=== PATIENT | male | born 1950 | race Caucasian/White ===

== ENCOUNTER 2018-10-23 08:09 | Inpatient (IN) | payer MEDICARE, OTHER ==
[~2018-10-23] VITALS: Ht 185.4 cm; Wt 131.5 kg
[2018-10-23 08:14] VITALS: BP 132/76
[2018-10-23] MEDS ORDERED: ALLOPURINOL 10100 M2 PO (08:17)
[2018-10-23] MEDS ORDERED: FLOMAX0.4 MG PO (08:17)
[2018-10-23] MEDS ORDERED: ATORVASTATIN CA40 MG PO (08:18)
[2018-10-23] MEDS ORDERED: PROTONIX40 M1 PO (08:18)
[2018-10-23] MEDS ORDERED: AMILORIDE HCL-1 EACH PO (08:18)
[2018-10-23] MEDS ORDERED: BAYER CHEWABLE81 MG PO (08:19)
[2018-10-23] MEDS ORDERED: FISH OIL 1,001000 M2 PO (08:19)
[2018-10-23] MEDS ORDERED: VITAMIN E400 UNIT PO (08:19)
[2018-10-23] MEDS ORDERED: ZANAFLEX4 MG PO (08:19)
[2018-10-23 09:05] LABS: HEMATOCRIT 43.7 % (42.0-52.0); HEMOGLOBIN 14.9 gm/dL (14.0-18.0); MCH 30.2 pg (26.0-34.0); MPV 7.5 fl. (7.2-11.1); NUCLEATED RBCS 0 /100WBC; PLATELET COUNT* 214 thou/uL (150-400); RBC 4.91 mil/uL (4.50-6.00); RDW-CV 14.4 % (10.5-14.5); WBC 12.2 thou/uL (4.0-11.0)
[2018-10-23 09:14] LABS: CALCIUM 9.1 mg/dL (8.5-10.1); CREATININE 0.9 mg/dL (0.6-1.3)
[2018-10-23 09:18] LABS: ALBUMIN 3.5 g/dL (3.4-5.0); TOTAL BILIRUBIN 2.8 mg/dL (<0.1-1.0); TOTAL PROTEIN 7.5 g/dL (6.4-8.2)
[2018-10-23 09:35] LABS: ABSOLUTE LYMPHOCYTES 0.6 thou/uL (0.8-5.3); ABSOLUTE MONOCYTES 1.2 thou/uL (0.0-1.2); ABSOLUTE NEUTROPHILS 10.4 thou/uL (1.6-8.1); ANISOCYTOSIS 1+; PLATELET ESTIMATE ADEQUATE; POIKILOCYTOSIS 1+
[2018-10-23 11:16] LABS: URINE BILIRUBIN NEGATIVE (Negative); URINE BLOOD TRACE (Negative); URINE CLARITY CLEAR; URINE COLOR YELLOW; URINE GLUCOSE-RANDOM NEGATIVE (Negative); URINE KETONES NEGATIVE (Negative); URINE LEUKOCYTES-REFLEX NEGATIVE (Negative); URINE NITRITE-REFLEX NEGATIVE (Negative); URINE PROTEIN NEGATIVE (Negative); URINE SPECIFIC GRAVITY <= 1.005 (1.005-1.030); URINE UROBILINOGEN 0.2 E.U./dl (0.2-1.0)
[2018-10-23 11:47] VITALS: BP 124/61
[2018-10-23 12:07] VITALS: BP 144/87
[2018-10-23 15:46] VITALS: BP 137/77
--- NOTE | 2018-10-23 17:48 | EKG ---
[place] [address] ELECTROCARDIOGRAM REPORT Name: JENNIFER ARORA Room: [address] ADM IN M.R.#: [id number] Admission: 10/23/18 Attend Phys: Fariba Suarez DO Discharge: Date of : 50 Report #: [id number] THIS REPORT FOR: //name// [facility] ED Test Date: 2018-10-23 Test Time: 09:32:28 Pat Name: JENNIFER ARORA Department: Room: [facility] Gender: M Ore Miner: KARLOS : 1950 Requested By: Irasema Deluca Order Number: [id number] MD: John Avitia Measurements Intervals [place] Rate: 111 P: 68 MO: 185 QRS: 69 QRSD: 104 T: 12 QT: 320 QTc: 435 Interpretive Statements Sinus tachycardia No previous ECG available for comparison Electronically Signed On 10-23-2018 17:48:12 CW OPERATOR by John Avitia [email or web address] <ELECTRONICALLY SIGNED> By: John Avitia MD, [facility] 10/23/18 1748 0932 09 John Avitia MD, FACC /EPI
[2018-10-23 19:40] VITALS: BP 134/76
[2018-10-24 03:59] LABS: ABSOLUTE EOSINOPHILS 0.1 thou/uL (0.0-0.7); ABSOLUTE LYMPHOCYTES 0.8 thou/uL (0.8-5.3); ABSOLUTE MONOCYTES 0.9 thou/uL (0.0-1.2); ABSOLUTE NEUTROPHILS 9.9 thou/uL (1.6-8.1); BASOPHILS 0.2 %; EOSINOPHILS 0.5 %; HEMATOCRIT 39.4 % (42.0-52.0); HEMOGLOBIN 13.1 gm/dL (14.0-18.0); LYMPHOCYTES 6.6 %; MCH 29.6 pg (26.0-34.0); MCHC 33.2 g/dL (28.0-37.0); MCV 89.1 fL (80.0-100.0); MONOCYTES 8.1 %; MPV 7.7 fl. (7.2-11.1); NUCLEATED RBCS 0 /100WBC; PLATELET COUNT* 191 thou/uL (150-400); POLYS 84.6 %; RBC 4.42 mil/uL (4.50-6.00); RDW-CV 14.5 % (10.5-14.5); WBC 11.7 thou/uL (4.0-11.0)
[2018-10-24 04:21] LABS: CALCIUM 8.5 mg/dL (8.5-10.1)
[2018-10-24 04:22] LABS: POTASSIUM 4.2 mmol/L (3.5-5.1)
[2018-10-24 08:11] VITALS: BP 149/76
[2018-10-24 16:30] VITALS: BP 122/61
[2018-10-24 20:20] VITALS: BP 142/72
[2018-10-25 04:22] LABS: ABSOLUTE EOSINOPHILS 0.2 thou/uL (0.0-0.7); ABSOLUTE LYMPHOCYTES 0.9 thou/uL (0.8-5.3); ABSOLUTE MONOCYTES 0.7 thou/uL (0.0-1.2); ABSOLUTE NEUTROPHILS 9.1 thou/uL (1.6-8.1); BASOPHILS 0.2 %; EOSINOPHILS 1.8 %; HEMATOCRIT 38.8 % (42.0-52.0); HEMOGLOBIN 13.1 gm/dL (14.0-18.0); LYMPHOCYTES 7.8 %; MCH 30.1 pg (26.0-34.0); MCHC 33.8 g/dL (28.0-37.0); MCV 89.1 fL (80.0-100.0); MONOCYTES 6.7 %; MPV 7.8 fl. (7.2-11.1); NUCLEATED RBCS 0 /100WBC; PLATELET COUNT* 217 thou/uL (150-400); POLYS 83.5 %; RBC 4.36 mil/uL (4.50-6.00); RDW-CV 14.2 % (10.5-14.5)
[2018-10-25 04:33] LABS: CALCIUM 8.5 mg/dL (8.5-10.1); CREATININE 0.8 mg/dL (0.6-1.3); POTASSIUM 3.7 mmol/L (3.5-5.1)
[2018-10-25 07:50] VITALS: BP 135/57
[2018-10-25 16:00] VITALS: BP 113/67
[2018-10-25 20:35] VITALS: BP 113/65
[2018-10-26 01:16] VITALS: BP 115/52
[2018-10-26 07:50] VITALS: BP 124/62
[2018-10-26 16:47] VITALS: BP 113/44
[2018-10-26 21:22] VITALS: BP 136/61
[2018-10-27 10:07] VITALS: BP 113/59
[2018-10-27 16:00] VITALS: BP 134/66
[2018-10-28 03:44] LABS: HEMATOCRIT 33.4 % (42.0-52.0); HEMOGLOBIN 11.3 gm/dL (14.0-18.0); MCH 30.1 pg (26.0-34.0); MCHC 33.7 g/dL (28.0-37.0); MCV 89.3 fL (80.0-100.0); MPV 7.5 fl. (7.2-11.1); RBC 3.74 mil/uL (4.50-6.00); RDW-CV 14.1 % (10.5-14.5); WBC 9.5 thou/uL (4.0-11.0)
[2018-10-28 04:00] VITALS: BP 100/51
[2018-10-28 04:16] LABS: CALCIUM 8.2 mg/dL (8.5-10.1); CREATININE 0.7 mg/dL (0.6-1.3); POTASSIUM 3.3 mmol/L (3.5-5.1)
[2018-10-28 07:55] VITALS: BP 112/51
[2018-10-28 16:00] VITALS: BP 132/54
[2018-10-29] VITALS (13 sets, daily range): BP systolic 102–11117; BP diastolic 4–67
[2018-10-30 00:35] VITALS: BP 120/54
[2018-10-30 03:56] VITALS: BP 130/55
[2018-10-30 07:45] VITALS: BP 120/50
[2018-10-30] MEDS ORDERED: AUGMENTIN 875-1 EACH PO (13:36)
[2018-10-30] MEDS ORDERED: NORCO 5-325 TA1 EACH PO (13:37)
[2018-10-30] MEDS ORDERED: CYCLOBENZAPRINE5 MG PO (13:39)
[2018-10-30 13:42] VITALS: BP 120/50
[2018-10-30 14:13] VITALS: BP 120/50
== END 2018-10-30 15:35 | disposition home health service (06) | DRG 871 ==
LOC: M.ERS 08:09 → M.TBA-ER 11:26 → M.ORTHSURG 11:26 → M.3W 10-25 16:41
PROVIDERS: Personal Emergency Response Attendant; Surgery; ADMIT Surgery
PROC: 0W9J3ZZ Drainage of Pelvic Cavity, Percutaneous Approach (ICD-10-PCS; principal; 2018-10-29)
DX: A41.9 Sepsis, unspecified organism (principal); K35.33 Acute appendicitis with perforation, localized peritonitis, and gangrene, with abscess; A04.9 Bacterial intestinal infection, unspecified; K21.9 Gastro-esophageal reflux disease without esophagitis; E78.5 Hyperlipidemia, unspecified; Z96.653 Presence of artificial knee joint, bilateral; Z96.612 Presence of left artificial shoulder joint; Z96.611 Presence of right artificial shoulder joint; Z28.21 Immunization not carried out because of patient refusal; Z87.442 Personal history of urinary calculi; Z88.6 Allergy status to analgesic agent; Z79.899 Other long term (current) drug therapy

== ENCOUNTER 2018-11-12 15:43 | Inpatient (IN) | payer MEDICARE, OTHER ==
[~2018-11-12] VITALS: Ht 185.4 cm; Wt 127.0 kg
[~2018-11-12 15:43] MED LIST: ALLOPURINOL 10100 M2 PO; AMILORIDE HCL-1 EACH PO; ATORVASTATIN CA40 MG PO; AUGMENTIN 875-1 EACH PO; BAYER CHEWABLE81 MG PO; CYCLOBENZAPRINE5 MG PO; FISH OIL 1,001000 M2 PO; FLOMAX0.4 MG PO; NORCO 5-325 TA1 EACH PO; PROTONIX40 M1 PO; VITAMIN E400 UNIT PO; ZANAFLEX4 MG PO
[2018-11-12 15:48] VITALS: BP 156/86
[2018-11-12 16:16] LABS: ABSOLUTE EOSINOPHILS 0.3 thou/uL (0.0-0.7); ABSOLUTE MONOCYTES 0.5 thou/uL (0.0-1.2); ABSOLUTE NEUTROPHILS 4.1 thou/uL (1.6-8.1); BASOPHILS 0.8 %; EOSINOPHILS 4.6 %; HEMATOCRIT 40.3 % (42.0-52.0); HEMOGLOBIN 13.7 gm/dL (14.0-18.0); LYMPHOCYTES 17.3 %; MCH 29.5 pg (26.0-34.0); MCHC 33.9 g/dL (28.0-37.0); MCV 87.2 fL (80.0-100.0); MONOCYTES 8.8 %; MPV 7.1 fl. (7.2-11.1); NUCLEATED RBCS 0 /100WBC; PLATELET COUNT* 454 thou/uL (150-400); POLYS 68.5 %; RBC 4.62 mil/uL (4.50-6.00); RDW-CV 14.8 % (10.5-14.5)
[2018-11-12 16:24] LABS: ANION GAP 10 mmol/L (7-16); BUN 18 mg/dL (7-18); CALCIUM 9.2 mg/dL (8.5-10.1); CHLORIDE 101 mmol/L (98-107); CO2 28 mmol/L (21-32); CREATININE 0.8 mg/dL (0.6-1.3); GLUCOSE 135 mg/dL (70-99); POTASSIUM 3.3 mmol/L (3.5-5.1); SODIUM 139 mmol/L (136-145)
[2018-11-12 16:31] LABS: ALBUMIN 3.2 g/dL (3.4-5.0); ALKALINE PHOSPHATASE 131 U/L (46-116); LIPASE 80 U/L (73-393); SGOT 15 U/L (15-37); SGPT 22 U/L (30-65); TOTAL BILIRUBIN 0.6 mg/dL (<0.1-1.0); TROPONIN-I LEVEL <0.06 ng/mL (<0.06)
[2018-11-12 20:55] VITALS: BP 132/80
[2018-11-12 21:00] VITALS: BP 153/83
[2018-11-13] MEDS ORDERED: CENTRUM SILVER1 EAC2 PO (01:36)
[2018-11-13 04:00] VITALS: BP 117/50
[2018-11-13 08:30] VITALS: BP 98/33
[2018-11-13 14:05] VITALS: BP 119/66
[2018-11-13 20:00] VITALS: BP 109/56
[2018-11-14 04:08] LABS: HEMATOCRIT 37.6 % (42.0-52.0); HEMOGLOBIN 12.6 gm/dL (14.0-18.0); MCH 29.7 pg (26.0-34.0); MCHC 33.5 g/dL (28.0-37.0); MCV 88.8 fL (80.0-100.0); MPV 7.4 fl. (7.2-11.1); RBC 4.23 mil/uL (4.50-6.00); RDW-CV 14.5 % (10.5-14.5); WBC 5.2 thou/uL (4.0-11.0)
[2018-11-14 04:39] LABS: ALBUMIN 2.8 g/dL (3.4-5.0); CALCIUM 8.7 mg/dL (8.5-10.1); CREATININE 0.8 mg/dL (0.6-1.3); POTASSIUM 4.5 mmol/L (3.5-5.1); TOTAL PROTEIN 6.3 g/dL (6.4-8.2)
[2018-11-14 08:30] VITALS: BP 131/63
--- NOTE | 2018-11-14 14:42 | EKG ---
[place] [address] ELECTROCARDIOGRAM REPORT Name: JENNIFER ARORA Room: [address] ADM IN M.R.#: [id number] Admission: 11/12/18 Attend Phys: Lisa Rivas Discharge: Date of : 50 Report #: [id number] THIS REPORT FOR: //name// [facility] ED Test Date: 2018-11-12 Test Time: 16:16:19 Pat Name: JENNIFER ARORA Department: Room: [facility] Gender: M Assistant Winemaker: MARBIN : 1950 Requested By: Owen Siegel Order Number: [id number] MD: Zachary Valiente Measurements Intervals [place] Rate: 102 P: 36 ID: [id number] QRS: 31 QRSD: 100 T: 11 QT: 349 QTc: 455 Interpretive Statements Sinus tachycardia Compared to ECG 10/23/2018 09:32:28 No significant changes Electronically Signed On 11-14-2018 14:42:12 MUTUEL DEPARTMENT MANAGER by Zachary Valiente [email or web address] <ELECTRONICALLY SIGNED> By: Zachary Valiente MD, [facility] 11/14/18 1442 1616 15 Zachary Valiente MD, FACC /EPI
[2018-11-14 16:25] VITALS: BP 131/63
[2018-11-14 16:44] VITALS: BP 112/62
[2018-11-14 20:18] VITALS: BP 103/54
[2018-11-15 05:17] LABS: HEMATOCRIT 38.3 % (42.0-52.0); HEMOGLOBIN 12.7 gm/dL (14.0-18.0); MCH 29.7 pg (26.0-34.0); MCHC 33.2 g/dL (28.0-37.0); MCV 89.3 fL (80.0-100.0); MPV 7.5 fl. (7.2-11.1); RBC 4.29 mil/uL (4.50-6.00); RDW-CV 14.7 % (10.5-14.5)
[2018-11-15 05:54] LABS: ALBUMIN 2.7 g/dL (3.4-5.0); CALCIUM 8.8 mg/dL (8.5-10.1); CREATININE 0.8 mg/dL (0.6-1.3); MAGNESIUM 2.1 mg/dL (1.8-2.4); POTASSIUM 4.3 mmol/L (3.5-5.1); TOTAL BILIRUBIN 0.7 mg/dL (<0.1-1.0); TOTAL PROTEIN 6.7 g/dL (6.4-8.2)
[2018-11-15 08:26] VITALS: BP 133/94
[2018-11-15] MEDS ORDERED: FIRVANQ50 MG/1 ML PO (09:38)
[2018-11-15] MEDS ORDERED: NORCO 5-325 TA1 EACH PO (09:55)
[2018-11-16 00:05] VITALS: BP 128/88
[2018-11-16 08:10] VITALS: BP 135/67
== END 2018-11-16 13:45 | disposition home or self-care (01) | DRG 372 ==
LOC: M.ERS 15:43 → M.TBA-ER 19:41 → M.ORTHSURG 19:41 → M.3W 11-13 16:03
PROVIDERS: Emergency Medicine Emergency Medical Services; Internal Medicine; ADMIT Internal Medicine
DX: K35.33 Acute appendicitis with perforation, localized peritonitis, and gangrene, with abscess (principal); E44.1 Mild protein-calorie malnutrition; K21.9 Gastro-esophageal reflux disease without esophagitis; E78.5 Hyperlipidemia, unspecified; Z96.653 Presence of artificial knee joint, bilateral; Z88.6 Allergy status to analgesic agent; Z98.52 Vasectomy status; Z87.891 Personal history of nicotine dependence; Z87.442 Personal history of urinary calculi; Z79.82 Long term (current) use of aspirin; Z79.899 Other long term (current) drug therapy; Z23 Encounter for immunization; Z68.36 Body mass index [BMI] 36.0-36.9, adult

== ENCOUNTER 2018-12-12 22:24 | Inpatient (IN) | payer OTHER ==
[~2018-12-12] VITALS: Ht 185.4 cm; Wt 133.8 kg
[~2018-12-12 22:24] MED LIST changes: +CENTRUM SILVER1 EAC2 PO; +FIRVANQ50 MG/1 ML PO
[2018-12-12 22:44] VITALS: BP 162/76
[2018-12-12] MEDS ORDERED: FISH OIL 1,001000 M2 PO (22:49)
[2018-12-12 23:10] LABS: ABSOLUTE EOSINOPHILS 0.3 thou/uL (0.0-0.7); ABSOLUTE LYMPHOCYTES 1.1 thou/uL (0.8-5.3); ABSOLUTE MONOCYTES 0.9 thou/uL (0.0-1.2); ABSOLUTE NEUTROPHILS 6.3 thou/uL (1.6-8.1); BASOPHILS 0.6 %; HEMATOCRIT 38.7 % (42.0-52.0); HEMOGLOBIN 12.9 gm/dL (14.0-18.0); LYMPHOCYTES 12.9 %; MCH 29.7 pg (26.0-34.0); MCHC 33.4 g/dL (28.0-37.0); MCV 88.8 fL (80.0-100.0); MONOCYTES 10.2 %; MPV 7.1 fl. (7.2-11.1); NUCLEATED RBCS 0 /100WBC; PLATELET COUNT* 241 thou/uL (150-400); POLYS 73.3 %; RBC 4.36 mil/uL (4.50-6.00); WBC 8.6 thou/uL (4.0-11.0)
[2018-12-12 23:15] LABS: URINE BILIRUBIN NEGATIVE (Negative); URINE BLOOD TRACE (Negative); URINE CLARITY CLEAR; URINE COLOR YELLOW; URINE GLUCOSE-RANDOM NEGATIVE (Negative); URINE KETONES NEGATIVE (Negative); URINE LEUKOCYTES-REFLEX NEGATIVE (Negative); URINE NITRITE-REFLEX NEGATIVE (Negative); URINE PROTEIN NEGATIVE (Negative); URINE SPECIFIC GRAVITY 1.025 (1.005-1.030); URINE UROBILINOGEN 0.2 E.U./dl (0.2-1.0)
[2018-12-12 23:23] LABS: CALCIUM 8.7 mg/dL (8.5-10.1); CREATININE 1.2 mg/dL (0.6-1.3); POTASSIUM 3.3 mmol/L (3.5-5.1)
[2018-12-12 23:27] LABS: ALBUMIN 3.2 g/dL (3.4-5.0); TOTAL BILIRUBIN 1.2 mg/dL (<0.1-1.0); TOTAL PROTEIN 7.5 g/dL (6.4-8.2)
[2018-12-13 00:42] VITALS: BP 136/70
[2018-12-13 01:00] VITALS: BP 167/85
--- NOTE | 2018-12-13 03:29 | NUR ---
PT ADMITTED TO ROOM 304 AT 0045 FOR ABDOMINAL PAIN. REPORTS FEELING ABDOMINAL PAIN AND LOWER BACK PAIN AT THE START OF SEPTEMBER 2018. PT STATES HE HAS A LONG HISTORY OF KIDNEY STONES DATING BACK TO 1966. HE STATES THE PAIN WAS RELATIVELY THE SAME INCLUDING PAIN WITH URINTION. PT DID NOT SEEK TREATMENT UNTIL September THINKING IT WAS A LARGE STONE THAT WOULD NOT PASS. HE REPORTS BEING HOSPITALISED AT THAT TIME THROUGH THE FIRST WEEK OF OCTOBER. PT STATES CT RESULTS REVEALED AN ABCESS BETWENN APPENDIX AND COLON. DRAIN WAS PLACED DURING FIRST WEEK OF OCTOBER 2018 WITH APPENDECTOMY SCHEDULED FOR November AT 12PM. PT PRESENTED TO ED DUE TO A FEVER OF 101.2 AT HOME. PT RECIEVED IV FENTANYL IN EMERGENCY ROOM IN AITION TO ZOFRAN AND IV ANTIBITICS. PT RECIEVED 50 MCG IV FENTANYL FOR SHARP STABBING ABDOMINAL PAIN RATED AT 8. PT RECIEVED SOME RELIEF FOR LESS THAN ONE HOUR. DR QUIÑONEZ PAGED FOR FURTHER ORDERS.
--- NOTE | 2018-12-13 06:36 | NUR ---
PT HYPERTENSIVE AT MIDNIGHT. PT RECIEVED PRN CLONADINE PER DR MEIER. BLOOD PRESSURE LOWERED TO SAFE LEVEL. PT'S HEART RATE, O2 SAT AND TEMP WITHIN NORMAL LIMITS. PT VOIDING LARGE AMOUNTS OF CLEAR YELLOW URINE. NO PAIN MEDS DURING SHIFT. WILL CONTINUE TO MONITOR.
--- NOTE | 2018-12-13 06:40 | NUR ---
PT NPO DURING SHIFT. PT'S ABDOMINAL PAIN AT TOLERABLE LEVEL AFTER RECIEVING IV DIAUDED AND ZOFRAN. VITAL SIGNS WITHIN NORMAL LIMITS. PT REMAINS NPO FOR SURGURY CONSULT THIS AM.
[2018-12-13 08:06] VITALS: BP 126/57
[2018-12-13 16:33] VITALS: BP 145/70
--- NOTE | 2018-12-13 18:43 | NUR ---
VSS-AFEBRILE. STARTED ON REGULAR DIET PER ORDERS, NO FURTHER N/V. ABDOMINAL PAIN PARTIALLY CONTROLLED WITH IV FENTANYL. SURGERY IS SATURDAY PER DR VARNER.
[2018-12-13 20:00] VITALS: BP 102/47
--- NOTE | 2018-12-14 03:39 | NUR ---
ASSESSMENT: PT REMAIN ALERT AND ORIENT TIMES FOUR. UP AD ERICA TO BR WITH STEADY GAIT. VSS, AFEBRILE. RIGHT SIDE DRESSING CHANGED AROUND BILILARY DRAIN. MINIMAL DRAINAGE NOTED. FENTANYL GIVEN WITH GOOD RESULTS. DENIES SOB AND NAUSEA. PT WILL BE NPO SATURDAY NIGHT FOR PENDING SURGERY ON SATURDAY. POOR PROGRESS TOWARDS DC GOALS, WILL CONTINUE TO MONITOR.
[2018-12-14 08:00] VITALS: BP 96/39
[2018-12-14 10:30] VITALS: BP 136/70
--- NOTE | 2018-12-14 16:20 | NUR ---
ASSUMED CARE OF PT AT THIS TIME. REVIEWED CHART. AGREE WITH ASSESSMENT. WILL CONTINUE TO MONITOR.
--- NOTE | 2018-12-14 16:41 | NUR ---
PT UP IN ROOM THROUGHOUT DAY. PAIN WELL CONTROLLED WITH FENTANYL. TOLERATING PO WELL. BILIARY DRAIN TO RLQ NOT DRAINING. FOUL SMELLING ODOR TO SITE. PLAN FOR SURGERY IN AM.
[2018-12-14 17:03] VITALS: BP 145/75
[2018-12-14 19:50] VITALS: BP 143/73
--- NOTE | 2018-12-15 05:56 | NUR ---
PT SLEPT ON AND OFF THIS SHIFT. ASSESSMENT DOCUMENTED. MEDS GIVEN PER E-JAN. IV PATENT, FLUIDS INFUSING. PAIN MEDS GIVEN PER E-JAN. ABD DRAIN IN PLACE WITH MINIMAL DRAINAGE. PT REMAINED NPO AFTER MIDNIGHT, AM MEDS GIVEN WITH NO WATER PER PATIENT REQUEST. WILL CONTINUE WITH PLAN OF CARE.
[2018-12-15 08:00] VITALS: BP 97/45
--- NOTE | 2018-12-15 15:03 | NUR ---
SW met with pt to complete initial assessment, introduce self, and SW role. Pt alert, oriented, pleasant. Pt lives at home with his . Pt remembered SW from previous hospitalization. Pt anticipates to have surgery in the morning. Pt is active with [facility]. SW to continue to follow to assist with safe dc planning.
[2018-12-15 16:00] VITALS: BP 117/63
--- NOTE | 2018-12-15 18:43 | NUR ---
PATIENT HAS BEEN A/O X 4 THIS SHIFT. MEDICATED FOR PAIN X 2 THIS SHIFT WITH PARTIAL RELIEF. RLQ DRAIN IN PLACE, DRESSING CHANGED, NO DRAINAGE NOTED THIS SHIFT. PATIENT UP AD ERICA IN ROOM. PATIENT WILL BE NPO AFTER MIDNIGHT FOR SURGERY ON SATURDAY. PATIENT CONTINUES ON IV ANTIBIOTICS. HOURLY ROUNDING COMPLETED. CALL LIGHT WITHIN REACH. WILL CONTINUE WITH PLAN OF CARE.
[2018-12-15 20:00] VITALS: BP 134/83
--- NOTE | 2018-12-16 05:47 | NUR ---
PT SLEPT ON AND OFF THIS SHIFT. ASSESSMENT DOCUMENTED. MEDS GIVEN PER E-JAN. IV PATENT, FLUIDS INFUSING. PAIN MEDS GIVEN PER E-JAN. ABD DRAIN IN PLACE WITH MINIMAL OUTPUT. PT REMAINED NPO AFTER MIDNIGHT. AM PROTONIX GIVEN WITH NO WATER PER PT REQUEST. WILL CONTINUE WITH PLAN OF CARE.
[2018-12-16 08:00] VITALS: BP 153/76
[2018-12-16 10:19] VITALS: BP 134/83
[2018-12-16 10:45] VITALS: BP 171/85
--- NOTE | 2018-12-16 19:37 | NUR ---
ASSUMED PT CARE @ 4509. ORIENTED TO ROOM. DRESSING ON RIGHT ABDOMEN-C/D/I. FOSTER DRAIN ON LEFT SIDE-SMALL AMOUNT OF SEROSANGUINEOUS DRAINAGE NOTED. IVF INFUSING @ 100 MLS/HR. PAIN MAINTAINED WITH IV FENTANYL. PT TOLERATED DIET WELL. URINAL @ BEDSIDE. HOURLY ROUNDS MAINTAINED. CALL LIGHT WITHIN REACH.
[2018-12-16 20:00] VITALS: BP 139/70
[2018-12-17 00:31] VITALS: BP 119/67
[2018-12-17 04:22] LABS: HEMATOCRIT 36.9 % (42.0-52.0); HEMOGLOBIN 12.4 gm/dL (14.0-18.0); MCH 29.9 pg (26.0-34.0); MCHC 33.6 g/dL (28.0-37.0); MPV 7.5 fl. (7.2-11.1); RBC 4.14 mil/uL (4.50-6.00); RDW-CV 15.1 % (10.5-14.5); WBC 6.4 thou/uL (4.0-11.0)
[2018-12-17 04:29] VITALS: BP 124/68
[2018-12-17 04:33] LABS: CALCIUM 8.6 mg/dL (8.5-10.1); CREATININE 0.8 mg/dL (0.6-1.3)
--- NOTE | 2018-12-17 05:09 | NUR ---
ASSUMED CARE OF PT AT 1900 PT ALERT AND ORIENTED X4 VS AND ASSESSMENT STABLE. PT CONTINUES TO HAVE A SM ANOUNT SEROSANGUINOUS DRAINAGE FROM FOSTER SITE.PT HAD PAIN MEDS THREE TIMES THEN SLEPT THROUGH THE NIGHT. WILL CONTINUE PLAN OF CARE.
[2018-12-17 08:53] VITALS: BP 119/57
[2018-12-17 11:50] VITALS: BP 125/55
--- NOTE | 2018-12-17 13:31 | OP ---
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 PROCEDURES: 1. Laparoscopic appendectomy. 2. Extensive lysis of adhesions lasting greater than 90 minutes. 3. Fulguration of intra-abdominal abscess. SURGEON: Fariba Suarez DO. ANESTHESIA: General endotracheal. SPECIMENS: 1. Right lower quadrant abscess sent for culture. 2. Appendix. ESTIMATED BLOOD LOSS: 50 mL. COMPLICATIONS: None. INDICATIONS FOR PROCEDURE: The patient is a 68-year-old gentleman who presented to [facility] approximately 2 months ago with a history of right lower quadrant pain for greater than 4 weeks. The patient was found to have perforated appendicitis with a large abscess. An IR percutaneous drain was then placed at this time. The patient subsequently was noted to have a continued leak from the tip of his appendix and a controlled fistula was noted with the drain. The patient represented to the Emergency Department 4 days ago with worsening of right lower quadrant and pelvic pain and a small amount of drainage from his percutaneous drain. The patient was seen and evaluated. He was explained the procedure including risks, benefits and alternatives. All questions were answered to the patient's satisfaction and informed consent was obtained. DESCRIPTION OF PROCEDURE: After the patient was brought back to the operating room and placed in supine position, general anesthesia was induced. SCDs were placed on bilateral lower extremities [place] [address] OPERATIVE REPORT Name: JENNIFER ARORA Room: [address] IN [facility].#: [id number] Admission: 12/12/18 Attend Phys: Elia Bertrand MD Discharge: Date of : 50 Report #: [id number] schedule. Next, after a time-out was performed, the abdomen was accessed via an infraumbilical Brynn trocar. The abdomen was insufflated to 15 mm of CO2. Next, under direct visualization, two 5-mm trocars were placed in the left lower quadrant and suprapubic region. Upon inspection, there was noted to be dense adhesions in the right lower quadrant. These adhesions were dissected free bluntly using a suction teleprinter as well as with the [place] dissector. The terminal ileum fat pad was dissected free from the right lower quadrant. The appendiceal base where the appendix entered into the cecum was then identified. This was noted to be normal appendix. A window was created in the mesoappendix and the appendiceal base was then transected using a LENI blue staple load x 2. Extensive lysis of adhesions was performed in the right lower quadrant, which extended greater than 90 minutes. The appendix was then circumferentially dissected free from the surrounding tissues. The mesoappendix and dense adhesions were transected using hook Bovie cautery. Eventually, the abscess cavity was identified and needle aspiration of this yellow purulent fluid was obtained and was sent as specimen for anaerobic, aerobic culture and Gram stain as the patient has been on several rounds of antibiotics. Next, the previously placed pigtail catheter was identified within the abscess cavity. This was cut at the anterior abdominal wall and brought out through the umbilical trocar site. Next, the appendix was then continued to be dissected free from the small bowel as well as the sigmoid colon. Once the appendix was freed in its entirety, it was placed within an Endopouch bag and brought out through the umbilical trocar site. The right lower quadrant was further inspected. There was noted just to be some mild oozing from the pelvic sidewall, which was controlled with Bovie cautery. Next, a piece of Surgicel was then placed in the right lower quadrant and without accumulation of further bleeding. The staple line at the cecum was inspected and noted to be in good position without stool or bleeding. Next, a 15-Wolof 3/4 fluted FOSTER drain was then placed through the left lower quadrant trocar and was placed within the right lower quadrant and the trocar was then removed. A 3-0 nylon drain stitch was then applied. The 5-mm trocar was then removed under direct visualization noting excellent hemostasis of the anterior abdominal wall. The Brynn trocar was then removed and the umbilical fascia was then closed with a [id number]-[id number] 0 Vicryl stitch after the abdomen was desufflated. Local anesthetic was infiltrated in all surgical sites. The skin was then closed with a 4-0 Monocryl in a subcuticular manner. Local anesthetic was infiltrated. The skin glue was then applied for sterile dressing. A drain sponge was then placed around the left lower quadrant drain and the bulb suction was then applied. The drapes were then removed. The percutaneous drain that was in the right lower quadrant was also removed and a 4 x 4 and Medipore tape dressing was then applied. All sponge, needle and instrument count was reported as correct at the end of the case. The patient tolerated the procedure well without any complications. A Jansen catheter was [facility] [address] [place] [address] OPERATIVE REPORT Name: JENNIFER ARORA Room: [address] ADM IN M.R.#: [id number] Admission: 12/12/18 Attend Phys: Elia Bertrand MD Discharge: Date of : 50 Report #: [id number] placed at the beginning of the case and was removed upon completion of the procedure. <ELECTRONICALLY SIGNED> By: Fariba Suarez DO 12/17/18 1331 1450 1530Fariba Suarez DO /nt
[2018-12-17 15:47] VITALS: BP 122/59
--- NOTE | 2018-12-17 17:32 | NUR ---
PT REMAINED ALERT AND ORIENTED THIS SHIFT. PT C/O PAIN, MEDS GIVEN ORERED. TRANSITIONED TO ORAL PAIN MEDS. PT DENIED ANY N/V. PT STAND BY ASSIST TO BATHROOM WITH GAIT BELT. FALL RISK PRECAUTIONS IN PLACE. HOURLY ROUNDING COMPLETED. WILL CONTINUE TO MONITOR.
[2018-12-17 20:00] VITALS: BP 119/59
[2018-12-18] VITALS (7 sets, daily range): BP systolic 112–127; BP diastolic 44–78
--- NOTE | 2018-12-18 04:58 | NUR ---
ASSUMED CARE OF PT AT 1900 PT ALERT AND ORIENTED X4 VS AND ASSESSMENT STABLE. PT HAD PAIN MEDS 3 TIMES THEN SLEPT IN BETWEEN. WILL CONTINUE PLAN OF CARE.
[2018-12-18 05:18] LABS: CALCIUM 8.7 mg/dL (8.5-10.1); CREATININE 0.9 mg/dL (0.6-1.3); MAGNESIUM 2.2 mg/dL (1.8-2.4); POTASSIUM 3.9 mmol/L (3.5-5.1)
[2018-12-18] MEDS ORDERED: HYDROCODONE-AP1 EAC6 PO (07:40)
[2018-12-18] MEDS ORDERED: ACIDOPHILUS1 EAC4 PO (07:40)
--- NOTE | 2018-12-18 14:03 | NUR ---
PT IV REMOVED. PRESCRIPTIONS AND CARE NOTES GIVEN. PT DENIED ANY FURTHER QUESTIONS OR CONCERNS. PT HOME WITH HOME HEALTH. PT LEFT WITH NURING STAFF VIA WHEELCHAIR TO CAR WITH SPOUSE. FALL RISK PRECAUTIONS IN PLACE. HOURLY ROUNDING COMPELTED. WILL CONTINUE TO MONITOR.
--- NOTE | 2018-12-18 14:28 | NUR ---
PT ORDERS RECEIVED FOR POSTOPERATIVE AMBULATION. PT DISCHARGED FROM FACILITY PRIOR TO COMPLETION OF PT EVALUATION AND INTERVENTIONS.
--- NOTE | 2018-12-19 12:05 | PATH ---
[facility] [address] [place] [address] PATHOLOGY RPT PROCEDURE Name: JENNIFER SIDDIQUI Room: [address] IN M.R.#: [id number] Admission: 12/12/18 Date of : 50 Discharge: 12/18/18 Report #: [id number] Path Case #: [id number] [facility] Accession Number: [id number] . 01 Material submitted: . APPENDIX . 01 Clinical history: . Perforated appendicitis . 02 Diagnosis: Appendix: - Chronic and acute appendicitis with evidence of perforation, acute and chronic periappendicitis and serositis and prominent serosal fibrosis/adhesions. (CHERRY:uri; 12/18/2018) QMS/12/18/2018 . 02 Electronically signed: . Mikey Barone MD, Pathologist NPI- [id number] . 01 Gross description: . Received in formalin labeled "Jennifer Siddiqui, appendix," is an irregular, partially disrupted appendix measuring 11.3 cm in length by 0.8 cm in diameter with a moderate amount of attached mesoappendix measuring up to 2.2 cm in thickness. The serosal surface is shaggy in appearance, and partially encased in thickened, fibrous adhesions. A staple line is present at the proximal margin, measuring 5.8 cm in length. A disrupted area is noted on the appendix, 6.4 cm from the proximal margin staple line that grossly appears to transect the entire appendix (inked red). The serosa surrounding the proximal staple line is inked black, and the staple line is removed. Serial sectioning through the appendix reveals a pinpoint to dilated lumen measuring up to 0.5 cm in diameter and partially filled with dark brown, friable fecal material. Sectioning through the attached mesoappendix reveals bright yellow cut surfaces. The proximal surgical margin is removed, trisected and submitted en face in cassettes A1 and A2. The bisected distal tip is also submitted in cassette A2. The disrupted area is submitted en face in cassette A3. Additional petroleum products sales representative sections are submitted in cassette A4. Gross photographs are taken. ([facility]; 12/17/2018) XDC/XDC . 02 Microscopic: . . . 02 Pathologist provided ICD-10: [place] [address] PATHOLOGY RPT PROCEDURE Name: JENNIFER SIDDIQUI KAYE Room: [address] DIS IN M.R.#: [id number] Admission: 12/12/18 Date of : 50 Discharge: 12/18/18 Report #: [id number] Path Case #: [id number] K35.80 . 02 CPT . 137796 Specimen Comment: A courtesy copy of this report has been sent to Specimen Comment: [phone], . Specimen Comment: Report sent to / DR QUIÑONEZ Specimen Comment: A duplicate report has been generated due to demographic updates. Performed at: 01 [facility] [address], [place], [place] [id number] MD Amrik Jacob MD Phone: [phone] Performed at: 02 [facility] [address], [place], [place] [id number] MD Mikey Barone MD Phone: [phone]
== END 2018-12-18 14:05 | disposition home health service (06) | DRG 335 ==
LOC: M.ERS 22:24 → M.TBA-ER 23:46 → M.3W 23:46 → M.ORTHSURG 12-16 14:53
PROVIDERS: Emergency Medicine Emergency Medical Services; Internal Medicine; Surgery; ADMIT Internal Medicine
PROC: 0DNW4ZZ Release Peritoneum, Percutaneous Endoscopic Approach (ICD-10-PCS; principal; 2018-12-16)
PROC: 0DTJ4ZZ Resection of Appendix, Percutaneous Endoscopic Approach (ICD-10-PCS; principal; 2018-12-16)
PROC: 0W9F4ZZ Drainage of Abdominal Wall, Percutaneous Endoscopic Approach (ICD-10-PCS; principal; 2018-12-16)
DX: K35.32 Acute appendicitis with perforation, localized peritonitis, and gangrene, without abscess (principal); R65.11 Systemic inflammatory response syndrome (SIRS) of non-infectious origin with acute organ dysfunction; N17.9 Acute kidney failure, unspecified; K63.2 Fistula of intestine; N18.3 Chronic kidney disease, stage 3 (moderate); Z96.653 Presence of artificial knee joint, bilateral; E87.6 Hypokalemia; E80.6 Other disorders of bilirubin metabolism; Z87.442 Personal history of urinary calculi; Z98.52 Vasectomy status; Z87.81 Personal history of (healed) traumatic fracture; Z88.6 Allergy status to analgesic agent; Z87.891 Personal history of nicotine dependence; Z79.82 Long term (current) use of aspirin; Z79.899 Other long term (current) drug therapy

== ENCOUNTER 2019-07-20 14:26 | Emergency (ER) | payer OTHER ==
[~2019-07-20] VITALS: Ht 185.4 cm; Wt 133.8 kg
[~2019-07-20 14:26] MED LIST changes: +ACIDOPHILUS1 EAC4 PO; +HYDROCODONE-AP1 EAC6 PO
[2019-07-20 15:53] VITALS: BP 144/83
== END 2019-07-20 15:54 | disposition home or self-care (01) ==
LOC: M.ERS 14:26
DX: S16.1XXA Strain of muscle, fascia and tendon at neck level, initial encounter (principal); M54.6 Pain in thoracic spine; K21.9 Gastro-esophageal reflux disease without esophagitis; E78.5 Hyperlipidemia, unspecified; G47.30 Sleep apnea, unspecified; Z96.653 Presence of artificial knee joint, bilateral; Z96.611 Presence of right artificial shoulder joint; Z88.6 Allergy status to analgesic agent; Z96.612 Presence of left artificial shoulder joint; Z87.442 Personal history of urinary calculi; Z98.890 Other specified postprocedural states; V59.49XA Driver of pick-up truck or van injured in collision with other motor vehicles in traffic accident, initial encounter; Y93.89 Activity, other specified; Y92.89 Other specified places as the place of occurrence of the external cause; Y99.8 Other external cause status

== ENCOUNTER → 2019-09-14 | Outpatient (CLI) | payer OTHER ==
[~2019-09-14] MED LIST changes: -ATORVASTATIN CA40 MG PO; +LIPITOR40 MG PO
== END ==
LOC: M.PC 04:54
DX: M50.30 Other cervical disc degeneration, unspecified cervical region (principal); E78.5 Hyperlipidemia, unspecified; M47.812 Spondylosis without myelopathy or radiculopathy, cervical region; I10 Essential (primary) hypertension; M79.18 Myalgia, other site; M54.81 Occipital neuralgia

== ENCOUNTER → 2019-09-21 | Outpatient (CLI) | payer OTHER | END | disposition home or self-care (01) | LOC: M.PC 01:14 | DX: M54.81 Occipital neuralgia (principal); M54.2 Cervicalgia; Z98.890 Other specified postprocedural states; Z88.8 Allergy status to other drugs, medicaments and biological substances; Z79.899 Other long term (current) drug therapy; Z79.82 Long term (current) use of aspirin; Z87.19 Personal history of other diseases of the digestive system ==

== ENCOUNTER → 2019-10-05 | Outpatient (CLI) | payer OTHER | LOC: M.PC 04:35 | DX: M47.812 Spondylosis without myelopathy or radiculopathy, cervical region (principal); M79.18 Myalgia, other site; M50.30 Other cervical disc degeneration, unspecified cervical region; M54.81 Occipital neuralgia ==

== ENCOUNTER → 2019-12-07 | Outpatient (CLI) | payer MEDICARE | LOC: M.WC 01:28 | DX: I87.331 Chronic venous hypertension (idiopathic) with ulcer and inflammation of right lower extremity (principal); L97.812 Non-pressure chronic ulcer of other part of right lower leg with fat layer exposed; L03.115 Cellulitis of right lower limb; E78.5 Hyperlipidemia, unspecified; E66.9 Obesity, unspecified; I10 Essential (primary) hypertension; K21.9 Gastro-esophageal reflux disease without esophagitis; M1A.9XX0 Chronic gout, unspecified, without tophus (tophi); Z87.891 Personal history of nicotine dependence; Z68.41 Body mass index [BMI] 40.0-44.9, adult; Z98.49 Cataract extraction status, unspecified eye; Z96.659 Presence of unspecified artificial knee joint; Z96.619 Presence of unspecified artificial shoulder joint ==

== ENCOUNTER → 2019-12-14 | Outpatient (CLI) | payer MEDICARE | LOC: M.WC 05:47 | DX: I87.331 Chronic venous hypertension (idiopathic) with ulcer and inflammation of right lower extremity (principal); L97.812 Non-pressure chronic ulcer of other part of right lower leg with fat layer exposed; L03.115 Cellulitis of right lower limb; E78.5 Hyperlipidemia, unspecified; E66.9 Obesity, unspecified; M1A.9XX0 Chronic gout, unspecified, without tophus (tophi); Z87.891 Personal history of nicotine dependence; Z68.41 Body mass index [BMI] 40.0-44.9, adult ==

== ENCOUNTER → 2019-12-21 | Outpatient (CLI) | payer MEDICARE | LOC: M.WC 01:53 | DX: I87.331 Chronic venous hypertension (idiopathic) with ulcer and inflammation of right lower extremity (principal); L97.811 Non-pressure chronic ulcer of other part of right lower leg limited to breakdown of skin; L03.115 Cellulitis of right lower limb; E78.5 Hyperlipidemia, unspecified; E66.9 Obesity, unspecified; M1A.9XX0 Chronic gout, unspecified, without tophus (tophi); Z68.41 Body mass index [BMI] 40.0-44.9, adult; Z87.891 Personal history of nicotine dependence ==

== ENCOUNTER → 2019-12-28 | Outpatient (CLI) | payer MEDICARE | LOC: M.WC 02:21 | DX: I87.331 Chronic venous hypertension (idiopathic) with ulcer and inflammation of right lower extremity (principal); L97.818 Non-pressure chronic ulcer of other part of right lower leg with other specified severity; L03.115 Cellulitis of right lower limb; E78.5 Hyperlipidemia, unspecified; E66.9 Obesity, unspecified; M1A.9XX0 Chronic gout, unspecified, without tophus (tophi); Z68.41 Body mass index [BMI] 40.0-44.9, adult; Z87.891 Personal history of nicotine dependence ==

== ENCOUNTER → 2020-01-14 | Outpatient (CLI) | payer MEDICARE | LOC: M.WC 08:29 | DX: I87.331 Chronic venous hypertension (idiopathic) with ulcer and inflammation of right lower extremity (principal); L97.812 Non-pressure chronic ulcer of other part of right lower leg with fat layer exposed; L97.211 Non-pressure chronic ulcer of right calf limited to breakdown of skin; E78.5 Hyperlipidemia, unspecified; E66.9 Obesity, unspecified; K21.9 Gastro-esophageal reflux disease without esophagitis; M1A.9XX0 Chronic gout, unspecified, without tophus (tophi); Z68.41 Body mass index [BMI] 40.0-44.9, adult; Z87.891 Personal history of nicotine dependence ==

== ENCOUNTER → 2020-01-21 | Outpatient (CLI) | payer MEDICARE | LOC: M.WC 02:23 | DX: I87.331 Chronic venous hypertension (idiopathic) with ulcer and inflammation of right lower extremity (principal); L97.811 Non-pressure chronic ulcer of other part of right lower leg limited to breakdown of skin; L97.211 Non-pressure chronic ulcer of right calf limited to breakdown of skin; E78.5 Hyperlipidemia, unspecified; E66.9 Obesity, unspecified; K21.9 Gastro-esophageal reflux disease without esophagitis; M1A.9XX0 Chronic gout, unspecified, without tophus (tophi); Z68.41 Body mass index [BMI] 40.0-44.9, adult; Z87.891 Personal history of nicotine dependence ==

== ENCOUNTER → 2020-01-28 | Outpatient (CLI) | payer MEDICARE | LOC: M.WC 04:51 | DX: I87.331 Chronic venous hypertension (idiopathic) with ulcer and inflammation of right lower extremity (principal); L97.218 Non-pressure chronic ulcer of right calf with other specified severity; E78.5 Hyperlipidemia, unspecified; E66.9 Obesity, unspecified; M1A.9XX0 Chronic gout, unspecified, without tophus (tophi); K21.9 Gastro-esophageal reflux disease without esophagitis; Z68.41 Body mass index [BMI] 40.0-44.9, adult; Z87.891 Personal history of nicotine dependence ==

== ENCOUNTER → 2020-03-30 | Outpatient (CLI) | payer MEDICARE | LOC: M.WC 05:26 | DX: L97.821 Non-pressure chronic ulcer of other part of left lower leg limited to breakdown of skin (principal); L97.811 Non-pressure chronic ulcer of other part of right lower leg limited to breakdown of skin; I89.0 Lymphedema, not elsewhere classified; I87.2 Venous insufficiency (chronic) (peripheral); I10 Essential (primary) hypertension; E66.01 Morbid (severe) obesity due to excess calories; E78.5 Hyperlipidemia, unspecified; K21.9 Gastro-esophageal reflux disease without esophagitis; M1A.9XX0 Chronic gout, unspecified, without tophus (tophi); Z87.891 Personal history of nicotine dependence; Z68.41 Body mass index [BMI] 40.0-44.9, adult; Z98.49 Cataract extraction status, unspecified eye; Z96.659 Presence of unspecified artificial knee joint; Z96.619 Presence of unspecified artificial shoulder joint ==

== ENCOUNTER → 2020-04-05 | Outpatient (CLI) | payer MEDICARE ==
--- NOTE | 2020-04-05 12:58 | 2DMMODE ---
[place] [address] 2 D/M-MODE ECHOCARDIOGRAM Name: JENNIFER ARORA Room: [facility]#: [id number] Admission: 04/05/20 Attend Phys: Chacha Rendon, Discharge: Date of : 50 Date of Service: 04/05/20 1256 Report #: [id number] THIS REPORT FOR: cc: Pamela Segundo Linda J. DO Liston, Michael J. MD [facility] ~ APPROVED REPORT Study performed: 04/05/2020 09:10:44 EXAM: Comprehensive 2D, Doppler, and color-flow Echocardiogram Patient Location: Out-Patient BSA: 2.63 HR: 96 bpm BP: 130/80 mmHg Other Information Study Quality: Fair Indications Peripheral Edema 2D Dimensions IVSd: 12.12 (7-11mm) LVOT Diam: 20.72 (18-24mm) LVDd: 38.48 mm PWd: 10.00 (7-11mm) Ascending Ao: 34.41 (22-36mm) LVDs: 26.81 (25-40mm) Aortic Root: 30.95 mm Volumes Left Atrial Volume (Systole) LA ESV Index: 15.20 mL/m2 Aortic Valve AoV Peak Leno.: 1.55 m/s AO Peak Gr.: 9.64 mmHg LVOT Max P.57 mmHg AO Mean Gr.: 5.86 mmHg LVOT Mean P.93 mmHg LVOT Max V: 0.95 m/s AO V2 VTI: 29.63 cm LVOT Mean V: 0.65 m/s ELVIA (VTI): 2.13 cm2 LVOT V1 VTI: 18.71 cm Mitral Valve E/A Ratio: 0.66 [place] [address] 2 D/M-MODE ECHOCARDIOGRAM Name: JENNIFER ARORA Room: [facility]#: [id number] Admission: 04/05/20 Attend Phys: Chacha Rendon, Discharge: Date of : 50 Date of Service: 04/05/20 1256 Report #: [id number] MV Decel. Time: 116.03 ms MV E Max Leno.: 0.76 m/s MV PHT: 33.65 ms MVA (PHT): 6.54 cm2 TDI E/Lateral E': 9.50 E/Medial E': 10.86 Medial E' Leno.: 0.07 m/s Lateral E' Leno.: 0.08 m/s Pulmonary Valve PV Peak Leno.: 1.51 m/s PV Peak Gr.: 9.08 mmHg Tricuspid Valve RAP Estimate: 5.00 mmHg TR Peak Gr.: 22.49 mmHg RVSP: 27.49 mmHg PA Pressure: 27.49 mmHg Left Ventricle The left ventricle is normal size. There is normal LV segmental wall motion. There is normal left ventricular wall thickness. Left ventricular systolic function is normal. LVEF is 65-70%. Grade I - abnormal relaxation pattern. Right Ventricle The right ventricle is normal size. The right ventricular systolic function is normal. Atria Left atrium is mildly dilated. The right atrium size is normal. Aortic Valve The aortic valve is normal in structure. No aortic regurgitation is present. There is no aortic valvular stenosis. Mitral Valve The mitral valve is normal in structure. There is no mitral valve regurgitation noted. No evidence of mitral valve stenosis. Tricuspid Valve The tricuspid valve is normal in structure. Mild tricuspid regurgitation. No pulmonary hypertension. Pulmonic Valve The pulmonary valve is normal in structure. [place] [address] 2 D/M-MODE ECHOCARDIOGRAM Name: JENNIFER ARORA Room: [facility]#: [id number] Admission: 04/05/20 Attend Phys: Chacha Rendon, Discharge: Date of : 50 Date of Service: 04/05/20 1256 Report #: [id number] valvular regurgitation. Great Vessels The aortic root is normal in size. IVC is normal in size and collapses >50% with inspiration. Pericardium There is no pericardial effusion. <Conclusion> The left ventricle is normal size. There is normal left ventricular wall thickness. Left ventricular systolic function is normal. LVEF is 65-70%. Grade I - abnormal relaxation pattern. Left atrium is mildly dilated. Mild tricuspid regurgitation. No pulmonary hypertension. IVC is normal in size and collapses >50% with inspiration. <ELECTRONICALLY SIGNED> By: John Avitia MD, FACC 04/05/20 1256 1256 1256 John Avitia MD, FACC /INF
== END ==
LOC: M.CRD 05:19 → M.ULTRA 10:00
DX: L97.821 Non-pressure chronic ulcer of other part of left lower leg limited to breakdown of skin (principal); L97.811 Non-pressure chronic ulcer of other part of right lower leg limited to breakdown of skin; I89.0 Lymphedema, not elsewhere classified; I87.2 Venous insufficiency (chronic) (peripheral); I10 Essential (primary) hypertension; E66.01 Morbid (severe) obesity due to excess calories; E78.5 Hyperlipidemia, unspecified; K21.9 Gastro-esophageal reflux disease without esophagitis; M1A.9XX0 Chronic gout, unspecified, without tophus (tophi); Z87.891 Personal history of nicotine dependence; Z68.41 Body mass index [BMI] 40.0-44.9, adult; Z98.49 Cataract extraction status, unspecified eye; Z96.659 Presence of unspecified artificial knee joint; Z96.619 Presence of unspecified artificial shoulder joint

== ENCOUNTER → 2020-04-06 | Outpatient (CLI) | payer MEDICARE | LOC: M.WC 02:40 | DX: L97.821 Non-pressure chronic ulcer of other part of left lower leg limited to breakdown of skin (principal); L97.811 Non-pressure chronic ulcer of other part of right lower leg limited to breakdown of skin; E66.01 Morbid (severe) obesity due to excess calories; E78.5 Hyperlipidemia, unspecified; I10 Essential (primary) hypertension; I89.0 Lymphedema, not elsewhere classified; I87.2 Venous insufficiency (chronic) (peripheral); K21.9 Gastro-esophageal reflux disease without esophagitis; M1A.9XX0 Chronic gout, unspecified, without tophus (tophi); Z68.41 Body mass index [BMI] 40.0-44.9, adult; Z87.891 Personal history of nicotine dependence ==

== ENCOUNTER → 2020-04-13 | Outpatient (CLI) | payer MEDICARE | LOC: M.WC 01:42 | DX: L97.828 Non-pressure chronic ulcer of other part of left lower leg with other specified severity (principal); E66.01 Morbid (severe) obesity due to excess calories; E78.5 Hyperlipidemia, unspecified; I89.0 Lymphedema, not elsewhere classified; I87.2 Venous insufficiency (chronic) (peripheral); I10 Essential (primary) hypertension; K21.9 Gastro-esophageal reflux disease without esophagitis; M1A.9XX0 Chronic gout, unspecified, without tophus (tophi); Z68.41 Body mass index [BMI] 40.0-44.9, adult; Z87.891 Personal history of nicotine dependence ==

== ENCOUNTER → 2020-05-09 | Outpatient (CLI) | payer MEDICARE | LOC: M.WC 02:33 | PROVIDERS: ATTEND Surgery | DX: I87.333 Chronic venous hypertension (idiopathic) with ulcer and inflammation of bilateral lower extremity (principal); L97.811 Non-pressure chronic ulcer of other part of right lower leg limited to breakdown of skin; L97.821 Non-pressure chronic ulcer of other part of left lower leg limited to breakdown of skin; I89.0 Lymphedema, not elsewhere classified; E66.01 Morbid (severe) obesity due to excess calories; E78.5 Hyperlipidemia, unspecified; K21.9 Gastro-esophageal reflux disease without esophagitis; M1A.9XX0 Chronic gout, unspecified, without tophus (tophi); Z87.891 Personal history of nicotine dependence; Z68.41 Body mass index [BMI] 40.0-44.9, adult ==

== ENCOUNTER → 2020-05-11 | Outpatient (CLI) | payer MEDICARE | LOC: M.WC 10:00 | PROVIDERS: ATTEND Surgery | DX: I87.332 Chronic venous hypertension (idiopathic) with ulcer and inflammation of left lower extremity (principal); L97.811 Non-pressure chronic ulcer of other part of right lower leg limited to breakdown of skin; L97.821 Non-pressure chronic ulcer of other part of left lower leg limited to breakdown of skin; E66.01 Morbid (severe) obesity due to excess calories; E78.5 Hyperlipidemia, unspecified; I89.0 Lymphedema, not elsewhere classified; I10 Essential (primary) hypertension; K21.9 Gastro-esophageal reflux disease without esophagitis; M1A.9XX0 Chronic gout, unspecified, without tophus (tophi); Z68.41 Body mass index [BMI] 40.0-44.9, adult; Z87.891 Personal history of nicotine dependence ==

== ENCOUNTER → 2020-05-16 | Outpatient (CLI) | payer MEDICARE | LOC: M.WC 04:19 | PROVIDERS: ATTEND Surgery | DX: I87.331 Chronic venous hypertension (idiopathic) with ulcer and inflammation of right lower extremity (principal); L97.811 Non-pressure chronic ulcer of other part of right lower leg limited to breakdown of skin; I87.312 Chronic venous hypertension (idiopathic) with ulcer of left lower extremity; L97.821 Non-pressure chronic ulcer of other part of left lower leg limited to breakdown of skin; I89.0 Lymphedema, not elsewhere classified; E78.5 Hyperlipidemia, unspecified; M1A.09X0 Idiopathic chronic gout, multiple sites, without tophus (tophi); E66.01 Morbid (severe) obesity due to excess calories; Z68.41 Body mass index [BMI] 40.0-44.9, adult; Z87.891 Personal history of nicotine dependence; Z79.82 Long term (current) use of aspirin ==

== ENCOUNTER → 2020-05-23 | Outpatient (CLI) | payer MEDICARE | LOC: M.WC 06:31 | PROVIDERS: ATTEND Surgery | DX: I87.333 Chronic venous hypertension (idiopathic) with ulcer and inflammation of bilateral lower extremity (principal); L97.811 Non-pressure chronic ulcer of other part of right lower leg limited to breakdown of skin; L97.821 Non-pressure chronic ulcer of other part of left lower leg limited to breakdown of skin; L03.115 Cellulitis of right lower limb; I89.0 Lymphedema, not elsewhere classified; E66.01 Morbid (severe) obesity due to excess calories; E78.5 Hyperlipidemia, unspecified; K21.9 Gastro-esophageal reflux disease without esophagitis; M1A.9XX0 Chronic gout, unspecified, without tophus (tophi); Z68.41 Body mass index [BMI] 40.0-44.9, adult; Z87.891 Personal history of nicotine dependence ==

== ENCOUNTER → 2020-05-30 | Outpatient (CLI) | payer MEDICARE | LOC: M.WC 04:21 | PROVIDERS: ATTEND Surgery | DX: I87.333 Chronic venous hypertension (idiopathic) with ulcer and inflammation of bilateral lower extremity (principal); L97.811 Non-pressure chronic ulcer of other part of right lower leg limited to breakdown of skin; L97.821 Non-pressure chronic ulcer of other part of left lower leg limited to breakdown of skin; L03.115 Cellulitis of right lower limb; I89.0 Lymphedema, not elsewhere classified; E66.01 Morbid (severe) obesity due to excess calories; E78.5 Hyperlipidemia, unspecified; I10 Essential (primary) hypertension; K21.9 Gastro-esophageal reflux disease without esophagitis; Z68.41 Body mass index [BMI] 40.0-44.9, adult; Z87.891 Personal history of nicotine dependence; M1A.9XX0 Chronic gout, unspecified, without tophus (tophi) ==

== ENCOUNTER → 2020-06-27 | Outpatient (CLI) | payer MEDICARE | LOC: M.LAB 15:43 | PROVIDERS: ATTEND Orthopaedic Surgery | DX: Z01.812 Encounter for preprocedural laboratory examination (principal); Z11.59 Encounter for screening for other viral diseases; E87.6 Hypokalemia ==

== ENCOUNTER 2020-08-25 16:17 | Emergency (ER) | payer MEDICARE ==
[~2020-08-25] VITALS: Ht 185.4 cm; Wt 145.2 kg
[2020-08-25 16:29] LABS: URINE BILIRUBIN NEGATIVE (Negative); URINE BLOOD NEGATIVE (Negative); URINE CLARITY CLEAR; URINE COLOR YELLOW; URINE GLUCOSE-RANDOM NEGATIVE (Negative); URINE KETONES NEGATIVE (Negative); URINE LEUKOCYTES-REFLEX NEGATIVE (Negative); URINE NITRITE-REFLEX NEGATIVE (Negative); URINE PROTEIN NEGATIVE (Negative); URINE UROBILINOGEN 0.2 E.U./dl (0.2-1.0)
[2020-08-25] MEDS ORDERED: KLOR-CON 1010 MEQ PO (16:35)
[2020-08-25] MEDS ORDERED: LASIX 40 MG TAB40 MG PO (16:36)
[2020-08-25 16:57] LABS: ABSOLUTE BASOPHILS 0.1 thou/uL (0.0-0.2); ABSOLUTE EOSINOPHILS 0.3 thou/uL (0.0-0.7); ABSOLUTE LYMPHOCYTES 1.1 thou/uL (0.8-5.3); ABSOLUTE MONOCYTES 0.7 thou/uL (0.0-1.2); ABSOLUTE NEUTROPHILS 4.4 thou/uL (1.6-8.1); BASOPHILS 1.2 %; EOSINOPHILS 4.7 %; HEMATOCRIT 46.2 % (42.0-52.0); LYMPHOCYTES 17.3 %; MCH 30.3 pg (26.0-34.0); MCHC 34.7 g/dL (28.0-37.0); MCV 87.4 fL (80.0-100.0); MONOCYTES 9.8 %; MPV 7.1 fl. (7.2-11.1); NUCLEATED RBCS 0 /100WBC; PLATELET COUNT* 274 thou/uL (150-400); RBC 5.28 mil/uL (4.50-6.00); RDW-CV 14.7 % (10.5-14.5); WBC 6.6 thou/uL (4.0-11.0)
[2020-08-25 17:02] LABS: CALCIUM 9.6 mg/dL (8.5-10.1); CREATININE 1.1 mg/dL (0.6-1.3); POTASSIUM 3.3 mmol/L (3.5-5.1)
[2020-08-25 17:06] LABS: ALBUMIN 4.1 g/dL (3.4-5.0); TOTAL BILIRUBIN 1.1 mg/dL (<0.1-1.0); TOTAL PROTEIN 8.2 g/dL (6.4-8.2)
[2020-08-25] MEDS ORDERED: NORCO 5-325 TA1 EAC2 PO (17:32)
[2020-08-25] MEDS ORDERED: LIDODERM1 EACH TRANSDERM (17:32)
[2020-08-25 18:25] VITALS: BP 144/97
== END 2020-08-25 18:27 | disposition home or self-care (01) ==
LOC: M.ERS 16:17
PROVIDERS: Physician Assistant
DX: M54.5 Low back pain (principal); E78.5 Hyperlipidemia, unspecified; K21.9 Gastro-esophageal reflux disease without esophagitis; Z87.442 Personal history of urinary calculi; Z96.653 Presence of artificial knee joint, bilateral; Z90.49 Acquired absence of other specified parts of digestive tract; Z98.52 Vasectomy status; Z96.611 Presence of right artificial shoulder joint; Z96.612 Presence of left artificial shoulder joint; Z88.6 Allergy status to analgesic agent

== ENCOUNTER → 2020-09-08 | Outpatient (CLI) | payer MEDICARE ==
[~2020-09-08] MED LIST changes: +KLOR-CON 1010 MEQ PO; +LASIX 40 MG TAB40 MG PO; +LIDODERM1 EACH TRANSDERM; +NORCO 5-325 TA1 EAC2 PO
== END ==
LOC: M.MRI 16:11
PROVIDERS: ATTEND Family Medicine
DX: M47.814 Spondylosis without myelopathy or radiculopathy, thoracic region (principal); M48.04 Spinal stenosis, thoracic region

== ENCOUNTER → 2020-10-24 | Outpatient (CLI) | payer MEDICARE | LOC: M.PC 08:30 | PROVIDERS: ATTEND Physical Medicine & Rehabilitation | DX: M47.24 Other spondylosis with radiculopathy, thoracic region (principal); M51.14 Intervertebral disc disorders with radiculopathy, thoracic region; M50.10 Cervical disc disorder with radiculopathy, unspecified cervical region; M47.22 Other spondylosis with radiculopathy, cervical region; Z87.891 Personal history of nicotine dependence; Z79.899 Other long term (current) drug therapy ==

== ENCOUNTER → 2020-10-31 | Outpatient (CLI) | payer MEDICARE | END | disposition home or self-care (01) | LOC: M.PC 09:28 | PROVIDERS: ATTEND Physical Medicine & Rehabilitation | DX: M54.9 Dorsalgia, unspecified (principal); M54.14 Radiculopathy, thoracic region; I10 Essential (primary) hypertension; E78.5 Hyperlipidemia, unspecified; Z98.890 Other specified postprocedural states; Z79.899 Other long term (current) drug therapy; Z87.442 Personal history of urinary calculi; Z96.653 Presence of artificial knee joint, bilateral; Z96.611 Presence of right artificial shoulder joint; Z96.612 Presence of left artificial shoulder joint; Z87.891 Personal history of nicotine dependence; Z88.8 Allergy status to other drugs, medicaments and biological substances ==

== ENCOUNTER → 2020-11-14 | Outpatient (CLI) | payer MEDICARE | LOC: M.PC 09:38 | PROVIDERS: ATTEND Physical Medicine & Rehabilitation | DX: M51.36 Other intervertebral disc degeneration, lumbar region (principal); M47.816 Spondylosis without myelopathy or radiculopathy, lumbar region; M47.24 Other spondylosis with radiculopathy, thoracic region; M79.10 Myalgia, unspecified site; M54.81 Occipital neuralgia; M50.10 Cervical disc disorder with radiculopathy, unspecified cervical region; M47.22 Other spondylosis with radiculopathy, cervical region; Z87.891 Personal history of nicotine dependence; Z79.899 Other long term (current) drug therapy ==

== ENCOUNTER → 2020-12-01 | Outpatient (CLI) | payer OTHER | LOC: M.MRI 11-24 08:30 | PROVIDERS: ATTEND Physical Medicine & Rehabilitation | DX: M51.36 Other intervertebral disc degeneration, lumbar region (principal); M51.24 Other intervertebral disc displacement, thoracic region; M96.1 Postlaminectomy syndrome, not elsewhere classified; M48.07 Spinal stenosis, lumbosacral region ==

== ENCOUNTER → 2021-01-16 | Outpatient (CLI) | payer OTHER | LOC: M.PC 01-09 08:00 | PROVIDERS: ATTEND Physical Medicine & Rehabilitation | DX: M47.816 Spondylosis without myelopathy or radiculopathy, lumbar region (principal); M51.36 Other intervertebral disc degeneration, lumbar region; M48.07 Spinal stenosis, lumbosacral region; M47.24 Other spondylosis with radiculopathy, thoracic region; M51.14 Intervertebral disc disorders with radiculopathy, thoracic region; M54.81 Occipital neuralgia; M50.30 Other cervical disc degeneration, unspecified cervical region; Z87.891 Personal history of nicotine dependence; Z79.899 Other long term (current) drug therapy ==

== ENCOUNTER → 2021-01-23 | Outpatient (CLI) | payer OTHER | END | disposition home or self-care (01) | LOC: M.PC 08:30 | PROVIDERS: ATTEND Physical Medicine & Rehabilitation | DX: M47.814 Spondylosis without myelopathy or radiculopathy, thoracic region (principal); M51.34 Other intervertebral disc degeneration, thoracic region; I10 Essential (primary) hypertension; E78.5 Hyperlipidemia, unspecified; K21.9 Gastro-esophageal reflux disease without esophagitis; Z98.890 Other specified postprocedural states; Z79.899 Other long term (current) drug therapy; Z87.442 Personal history of urinary calculi; Z96.653 Presence of artificial knee joint, bilateral; Z87.891 Personal history of nicotine dependence ==

== ENCOUNTER → 2021-01-30 | Outpatient (CLI) | payer OTHER ==
[~2021-01-30] MED LIST changes: +ACETAMINOP-CODEI5 ML; +FLEXERIL
== END | disposition home or self-care (01) ==
LOC: M.PC 08:29
PROVIDERS: ATTEND Physical Medicine & Rehabilitation
DX: M47.814 Spondylosis without myelopathy or radiculopathy, thoracic region (principal); M51.34 Other intervertebral disc degeneration, thoracic region; M54.14 Radiculopathy, thoracic region; M54.9 Dorsalgia, unspecified; I10 Essential (primary) hypertension; E78.5 Hyperlipidemia, unspecified; N28.89 Other specified disorders of kidney and ureter; G47.30 Sleep apnea, unspecified; Z98.890 Other specified postprocedural states; Z79.899 Other long term (current) drug therapy; Z87.891 Personal history of nicotine dependence; Z96.653 Presence of artificial knee joint, bilateral; Z87.442 Personal history of urinary calculi; Z94.0 Kidney transplant status; Z88.8 Allergy status to other drugs, medicaments and biological substances

== ENCOUNTER → 2021-03-06 | Outpatient (CLI) | payer OTHER | LOC: M.LAB 14:56 | PROVIDERS: ATTEND Orthopaedic Surgery | DX: Z01.812 Encounter for preprocedural laboratory examination (principal); Z20.822 Contact with and (suspected) exposure to COVID-19; E87.6 Hypokalemia ==

== ENCOUNTER → 2021-03-13 | Outpatient (CLI) | payer OTHER | LOC: M.PC 10:50 | PROVIDERS: ATTEND Physical Medicine & Rehabilitation | DX: M47.816 Spondylosis without myelopathy or radiculopathy, lumbar region (principal); M47.24 Other spondylosis with radiculopathy, thoracic region ==

== ENCOUNTER → 2021-03-17 | Outpatient (CLI) | payer OTHER | LOC: M.LAB 15:23 | PROVIDERS: ATTEND Physical Medicine & Rehabilitation | DX: Z01.812 Encounter for preprocedural laboratory examination (principal); Z20.822 Contact with and (suspected) exposure to COVID-19 ==

== ENCOUNTER → 2021-05-03 | Outpatient (CLI) | payer OTHER | LOC: M.PC 08:43 | PROVIDERS: ATTEND Physical Medicine & Rehabilitation | DX: M47.816 Spondylosis without myelopathy or radiculopathy, lumbar region (principal); M51.37 Other intervertebral disc degeneration, lumbosacral region; M48.061 Spinal stenosis, lumbar region without neurogenic claudication; M51.14 Intervertebral disc disorders with radiculopathy, thoracic region; M47.814 Spondylosis without myelopathy or radiculopathy, thoracic region; E78.5 Hyperlipidemia, unspecified; I10 Essential (primary) hypertension; Z79.891 Long term (current) use of opiate analgesic; Z79.899 Other long term (current) drug therapy; Z87.891 Personal history of nicotine dependence ==

== ENCOUNTER → 2021-05-22 | Outpatient (CLI) | payer OTHER | LOC: M.PC 10:00 | PROVIDERS: ATTEND Physical Medicine & Rehabilitation | DX: M51.17 Intervertebral disc disorders with radiculopathy, lumbosacral region (principal); M47.26 Other spondylosis with radiculopathy, lumbar region; M48.061 Spinal stenosis, lumbar region without neurogenic claudication; M47.24 Other spondylosis with radiculopathy, thoracic region; M51.14 Intervertebral disc disorders with radiculopathy, thoracic region; R51.9 Headache, unspecified; M79.18 Myalgia, other site; M54.81 Occipital neuralgia; M47.22 Other spondylosis with radiculopathy, cervical region; M50.10 Cervical disc disorder with radiculopathy, unspecified cervical region; Z79.899 Other long term (current) drug therapy; Z79.891 Long term (current) use of opiate analgesic ==

== ENCOUNTER → 2021-09-06 | Outpatient (CLI) | payer OTHER | LOC: M.PC 09:59 | PROVIDERS: ATTEND Physical Medicine & Rehabilitation | DX: M47.816 Spondylosis without myelopathy or radiculopathy, lumbar region (principal); M47.814 Spondylosis without myelopathy or radiculopathy, thoracic region; M51.37 Other intervertebral disc degeneration, lumbosacral region; M51.34 Other intervertebral disc degeneration, thoracic region; M47.812 Spondylosis without myelopathy or radiculopathy, cervical region; M50.30 Other cervical disc degeneration, unspecified cervical region; M54.81 Occipital neuralgia; R51.9 Headache, unspecified ==

== ENCOUNTER → 2021-09-29 | Outpatient (CLI) | payer OTHER ==
[~2021-09-29] MED LIST changes: +ACETAMINOP-CODEI5 ML PO
== END ==
LOC: M.LAB 14:33
PROVIDERS: ATTEND Physical Medicine & Rehabilitation
DX: Z01.812 Encounter for preprocedural laboratory examination (principal); Z20.822 Contact with and (suspected) exposure to COVID-19

== ENCOUNTER → 2021-10-02 | Outpatient (CLI) | payer OTHER | LOC: M.LAB 10:33 | PROVIDERS: ATTEND Physical Medicine & Rehabilitation | DX: E87.6 Hypokalemia (principal) ==

== ENCOUNTER → 2021-11-13 | Outpatient (CLI) | payer OTHER | LOC: M.PC 09:10 | PROVIDERS: ATTEND Physical Medicine & Rehabilitation | DX: M47.26 Other spondylosis with radiculopathy, lumbar region (principal); M51.16 Intervertebral disc disorders with radiculopathy, lumbar region; M51.17 Intervertebral disc disorders with radiculopathy, lumbosacral region; M48.061 Spinal stenosis, lumbar region without neurogenic claudication; M48.07 Spinal stenosis, lumbosacral region; M47.24 Other spondylosis with radiculopathy, thoracic region; M51.14 Intervertebral disc disorders with radiculopathy, thoracic region; M47.22 Other spondylosis with radiculopathy, cervical region; M50.10 Cervical disc disorder with radiculopathy, unspecified cervical region; R51.9 Headache, unspecified ==

== ENCOUNTER 2021-11-23 16:52 | Emergency (ER) | payer OTHER ==
[~2021-11-23] VITALS: Ht 185.4 cm; Wt 153.3 kg
[2021-11-23] MEDS ORDERED: LIPITOR40 MG PO (17:05)
[2021-11-23] MEDS ORDERED: FISH OIL 1,0001 EAC9 PO (17:06)
[2021-11-23] MEDS ORDERED: CEPHALEXIN500 MG PO (18:50)
[2021-11-23 19:07] VITALS: BP 150/79
== END 2021-11-23 19:07 | disposition home or self-care (01) ==
LOC: M.ERS 16:52
DX: L03.116 Cellulitis of left lower limb (principal); L03.115 Cellulitis of right lower limb; R60.0 Localized edema; K21.9 Gastro-esophageal reflux disease without esophagitis; E78.5 Hyperlipidemia, unspecified; Z98.890 Other specified postprocedural states; Z90.89 Acquired absence of other organs; Z79.899 Other long term (current) drug therapy; Z88.8 Allergy status to other drugs, medicaments and biological substances